=== PATIENT | male | born 1950 | race Caucasian/White ===

== ENCOUNTER → 2021-02-14 09:14 | Outpatient (CLI) | payer MEDICARE, OTHER, SELFPAY ==
[2021-02-14 11:10] LABS: Prostate Specific Antigen 2.58 ng/mL (0.10-4.00)
== END ==
PROVIDERS: PCP Internal Medicine; Referring Provider Specialist; Visit Provider Specialist
DX: R97.20 Elevated prostate specific antigen [PSA] (principal)
CPT/HCPCS: 36415; 84153

== ENCOUNTER → 2022-02-06 08:38 | Outpatient (CLI) | payer MEDICARE, OTHER, SELFPAY | PROVIDERS: PCP Internal Medicine; Referring Provider Specialist; Visit Provider Specialist | DX: R97.20 Elevated prostate specific antigen [PSA] (principal) | CPT/HCPCS: 36415; 84153 ==

== ENCOUNTER → 2023-02-14 16:50 | Outpatient (CLI) | payer MEDICARE, OTHER, SELFPAY ==
[2023-02-14 18:16] LABS: Prostate Specific Antigen 3.34 ng/mL (0.10-4.00)
== END ==
PROVIDERS: PCP Internal Medicine; Referring Provider Specialist; Visit Provider Specialist
DX: R97.20 Elevated prostate specific antigen [PSA] (principal)
CPT/HCPCS: 36415; 84153

== ENCOUNTER → 2023-02-26 16:54 | Outpatient (CLI) | payer MEDICARE, OTHER, SELFPAY ==
--- NOTE | 2023-02-26 16:59 | DI.MRI.S_ITS ---
PROCEDURE: MR PELVIC PROSTATE PROTOCOL INDICATIONS: elevated PSA TECHNIQUE: Coronal HASTE, axial T1 FSE with fat saturation, 3-plane nonbreath-hold T2 FSE. After the administration of contrast, dynamic axial, delayed axial and coronal VIBE or 2-D FLASH with fat saturation through the pelvis. Diffusion weighted imaging and ADC was performed. COMPARISON: None. FINDINGS: Image quality: Diffusion weighted and dynamic contrast enhanced images are diagnostic. Prostate: Gland size is enlarged measuring 5.0 x 5.4 x 5.6 cm; ellipsoid gland volume is 78.6 mL. Lesion 1: Location: Left posterolateral transition zone at the mid gland level, on axial series 4, image 14 and coronal series 5, image 17. Size: 1.5 cm. T2W signal: Hypointense. DWI signal: Minimally hyperintense ADC signal: Moderately hypointense Enhancement: No Extracapsular extension: No, however it distends the pseudocapsule and may extend into the peripheral zone PI-RADS score: 5 due to T2 appearance. Lesion 2: Location: Right posterior paramedian transition zone at the apex, on ADC axial series 24, image 17 and axial diffusion series 23, image 65. Size: 0.9 cm. T2W signal: Indistinct and mildly hypointense DWI signal: Moderately hyperintense ADC signal: Mildly hypointense Enhancement: No Extracapsular extension: No PI-RADS score: 2 Lesion 3: There is a short linear 0.9 cm focus of restricted diffusion in the left peripheral zone at the apex without T2 correlate. PI-RADS score: 2 Genitourinary system: Bladder wall thickness is normal. Distal ureters are non distended. Bowel and peritoneum: No pathologic free pelvic fluid. Inferior colon and small bowel loops are normal in caliber. Moderate sigmoid diverticulosis. Nodes and vessels: Mildly enlarged bilateral external iliac/common femoral chain lymph nodes measured 0.8 and 0.9 mm in short axis. Mildly prominent bilateral obturator nodes measuring 8 mm maximally. Vasculature is normal caliber and patent. Soft tissues: No inguinal hernias. Bones: Marrow demonstrates normal overall signal, without lesions to suggest metastases. IMPRESSION: 1. Left posterolateral mid gland lesion PI-RADS category 5 due to T2 appearance. Differential diagnosis includes extruded BPH nodule. 2. Other prostate findings are likely benign. 3. Mild prostatomegaly. 4. Borderline, nonspecific pelvic adenopathy. Dictated by: Jayde Chang M.D. on 02/27/2023 at 9:24 Approved by: Jayde Chang M.D. on 02/27/2023 at 10:54
== END ==
PROVIDERS: PCP Family Medicine; Referring Provider Specialist; Visit Provider Specialist
DX: N40.0 Benign prostatic hyperplasia without lower urinary tract symptoms (principal); N42.9 Disorder of prostate, unspecified; R97.20 Elevated prostate specific antigen [PSA]
CPT/HCPCS: 72197; A9579

== ENCOUNTER → 2023-05-14 12:05 | Outpatient (CLI) | payer MEDICARE, OTHER, SELFPAY ==
[2023-05-14 13:09] LABS: Prostate Specific Antigen 4.72 ng/mL (0.10-4.00)
== END ==
PROVIDERS: PCP Family Medicine; Referring Provider Specialist; Visit Provider Specialist
DX: R97.20 Elevated prostate specific antigen [PSA] (principal)
CPT/HCPCS: 36415; 84153

== ENCOUNTER → 2023-10-06 12:42 | Outpatient (CLI) | payer MEDICARE, OTHER, SELFPAY ==
[2023-10-09 12:36] LABS: PSA Free % 17.3 % (.); PSA, Total 5.2 ng/mL (0.0-4.0)
== END ==
PROVIDERS: PCP Family Medicine; Referring Provider Specialist; Visit Provider Specialist
DX: R97.20 Elevated prostate specific antigen [PSA] (principal); N40.1 Benign prostatic hyperplasia with lower urinary tract symptoms; N13.8 Other obstructive and reflux uropathy
CPT/HCPCS: 36415; 84153; 84154

== ENCOUNTER → 2024-01-14 16:26 | Outpatient (CLI) | payer MEDICARE, OTHER, SELFPAY ==
[2024-01-16 11:36] LABS: PSA Free % 24.2 % (.); PSA, Total 3.6 ng/mL (0.0-4.0)
== END ==
PROVIDERS: Urology; PCP Family Medicine; Referring Provider Urology; Visit Provider Urology
DX: R97.20 Elevated prostate specific antigen [PSA] (principal); N40.1 Benign prostatic hyperplasia with lower urinary tract symptoms; N13.8 Other obstructive and reflux uropathy
CPT/HCPCS: 84153; 84154

== ENCOUNTER → 2024-04-28 09:03 | Outpatient (CLI) | payer MEDICARE, OTHER, SELFPAY ==
[2024-04-29 12:12] LABS: PSA, Total 4.3 ng/mL (0.0-4.0)
== END ==
PROVIDERS: PCP Family Medicine; Referring Provider Urology; Visit Provider Urology
DX: R97.20 Elevated prostate specific antigen [PSA] (principal)
CPT/HCPCS: 36415; 84153; 84154

== ENCOUNTER → 2024-09-01 08:50 | Outpatient (CLI) | payer MEDICARE, OTHER, SELFPAY ==
[2024-09-03 07:10] LABS: PSA Free % 23.2 % (.); PSA, Total 3.4 ng/mL (0.0-4.0)
== END ==
PROVIDERS: PCP Family Medicine; Referring Provider Urology; Visit Provider Urology
DX: R97.20 Elevated prostate specific antigen [PSA] (principal)
CPT/HCPCS: 36415; 84153; 84154